=== PATIENT | female | born 1980 | race Caucasian/White ===

== ENCOUNTER 2022-10-04 07:01 | Outpatient (CLI) | payer OTHER, SELFPAY ==
--- NOTE | 2022-10-04 07:15 | CRLHL7_ITS ---
For Patients: As a result of the Century Cures Act, medical imaging exams and procedure reports are released immediately into your electronic medical record. You may view this report before your referring provider. If you have questions, please contact your health care provider. INDICATION: COMPARISON: none TECHNIQUE: 2D billy scale and color Doppler images were acquired of the pelvis using a transabdominal and transvaginal approach. FINDINGS: Sonographic images demonstrate a normal size and smooth outer contour of the uterus. Uterus measures 10.8 cm in length by 4.6 cm in AP diameter by 5.6 cm in transverse dimension. The myometrium has a normal uniform echotexture. Intrauterine device is located within the lower uterine segment. The right ovary measures 4.3 x 1.6 x 2.9 cm in size and the left ovary measures 4.6 x 1.8 x 3.0 cm. The ovaries demonstrate normal arterial and venous blood flow on color Doppler analysis. There are no suspicious fluid collections within the cul-de-sac. IMPRESSION: Intrauterine device is located within the lower uterine segment. Dictated by Joel Bone MD @ 10/04/2022 8:43:15 AM (Electronically Signed)
== END 2022-10-04 07:02 | disposition home or self-care (01) ==
LOC: US 07:02
PROVIDERS: Visit Provider Physician Assistant
DX: N92.0 Excessive and frequent menstruation with regular cycle (principal)
CPT/HCPCS: 76830

== ENCOUNTER 2022-10-17 15:12 | Outpatient (CLI) | payer OTHER, SELFPAY ==
[2022-10-17 22:43] LABS: Strep A DNA Probe* NOT DETECTED (Not Detectd)
== END 2022-10-17 15:13 | disposition home or self-care (01) ==
LOC: KYNREF 15:13
PROVIDERS: Visit Provider Nurse Practitioner Family
DX: J02.9 Acute pharyngitis, unspecified (principal)
CPT/HCPCS: 87651

== ENCOUNTER 2022-10-21 21:04 | Emergency (ER) | payer OTHER, SELFPAY ==
[2022-10-21 21:29] VITALS: BP 138/90; PULSE 99; RESP 20; TEMP 36.2; O2SAT 99; BMI 34.2
--- NOTE | 2022-10-21 22:04 | CRLHL7_ITS ---
For Patients: As a result of the Century Cures Act, medical imaging exams and procedure reports are released immediately into your electronic medical record. You may view this report before your referring provider. If you have questions, please contact your health care provider. Indication: Intermittent right-sided chest pain, cough Technique: Chest 1 view Comparison: July 14, 2015 Findings/Impression: Cardiovascular and mediastinum: Heart size and vasculature are normal in caliber and appearance. Mediastinum is within normal limits. Lungs and pleural space: Lungs are clear. No sign of infiltrate or mass. No sign of pleural effusion. No pneumothorax. Bones and soft tissues: No significant findings. Dictated by Gracie Cantor MD @ 10/21/2022 11:43:11 PM (Electronically Signed)
[2022-10-21 22:22] LABS: PCR FLU A Negative PCR FLU A (Negative); PCR FLU B Negative PCR FLU B (Negative); PCR RSV Negative PCR RSV (Negative)
[2022-10-21 22:29] LABS: SARS PCR* Negative SARS-CoV-2 (Negative)
[2022-10-21 22:40] LABS: Chloride* 107 mmol/L (96-114); Potassium* 4.1 mmol/L (3.6-5.1); Sodium* 140 mmol/L (135-149)
[2022-10-21 22:42] LABS: Est. Creatinine Clearance* 64.58; Estimated Glomerular Filt Rate 73 ml/min
[2022-10-21 22:43] LABS: Anion Gap 9 mEq/L (7-15); Blood Urea Nitrogen* 14 mg/dL (5-24); Calcium* 9.8 mg/dL (8.4-10.6); Carbon Dioxide* 24 mmol/L (20-32); Glucose* 112 mg/dL (60-115)
[2022-10-21 22:44] LABS: Basophils Absolute Auto 0.05 K/uL (0.00-0.30); Basophils Percent Auto 0.7 % (0.0-3.0); D Dimer Quantitative* 0.29 ug/ml (0.00-0.50); Eosinophils Absolute Auto 0.12 K/uL (0.00-0.50); Eosinophils Percent Auto 1.8 % (0.0-7.0); Hematocrit 41.5 % (33.0-51.0); Hemoglobin* 14.8 gm/dL (12.0-16.0); Immature Granulocytes Abs Auto 0.07 K/uL (0.00-0.30); Lymphocytes Absolute Auto 1.69 K/uL (0.90-2.90); Lymphocytes Percent Auto 24.9 % (20-44); Mean Corpuscular HGB Conc 36 gm/dL (32-36); Mean Corpuscular Hemoglobin 33 pg (26-34); Mean Corpuscular Volume 92 fL (80-100); Monocytes Percent Auto 8.5 % (0.0-11.0); Neutrophils Absolute Auto 4.28 K/uL (1.7-7.0); Neutrophils Percent Auto 63.1 % (42.0-72.0); Platelet Count* 330 K/uL (140-440); RDW Coefficient of Variation % 12.1 % (11.5-15.5); Red Blood Count 4.49 m/uL (4.00-5.20); White Blood Count* 6.79 K/uL (4.50-11.00)
[2022-10-21 22:50] LABS: Slide Review Reflex No
[2022-10-21 23:12] LABS: Troponin I* < 0.01 ng/mL (0.01-0.04)
--- NOTE | 2022-10-21 23:25 | ED_ITS ---
HPI - Chest Pain General Chief Complaint: Chest Pain Stated Complaint: right side chest pain Time Seen by Provider: 10/21/22 21:59 History of Present Illness HPI narrative: Patient is a 42-year-old woman who presents approximately 4 hours after the onset of right-sided chest pain. She has had no orthopnea no PND no nausea no vomiting. She has no previous history of heart problems. Symptoms have resolved. She has had no diaphoresis. EKG done upon arrival shows normal sinus rhythm without acute ST or T-wave changes. Patient has had no reproducible pain recently and otherwise been in her usual state of health. Pain is moderate and described as dull. Related Data Home Medications Medication Instructions Recorded Confirmed No Known Home Medications 10/03/22 10/17/22 Allergies Allergy/AdvReac Type Severity Reaction Status Date / Time sulfamethoxazole Allergy Unknown Headache Verified 10/17/22 14:47 [From Bactrim] trimethoprim [From Bactrim] Allergy Unknown Headache Verified 10/17/22 14:47 morphine AdvReac Unknown Bradycardia Verified 10/17/22 14:47 Review of Systems Status of ROS Reports: 10 or more systems reviewed and unremarkable except as noted in History and below [facility] Medical History White classification A1 gestational diabetes mellitus (GDM) ?O24.410 - Gestational diabetes mellitus in , diet controlled (ICD- 10) History of blood transfusion ?Z92.89 - Personal history of other medical treatment (ICD-10) History of abnormal cervical Papanicolaou smear ?Z87.42 - Personal history of other diseases of the female genital tract (I CD-10) Bradycardia following surgery (2015) ?I97.89 - Other postprocedural complications and disorders of the circulatory system, not elsewhere classified (ICD-10) Surgical History History of tonsillectomy (1990) ?Z90.89 - Acquired absence of other organs (ICD-10) History of ?Z98.891 - History of uterine scar from previous surgery (ICD-10) Family History Grandmother Heart disease Grandfather Heart disease Father High blood pressure Mother Osteoporosis Son Cleft palate Social History (Reviewed 10/19/22 @ 04:29 by Daija Lazaro, MANAGER CARDIOVASCULAR, ENGINE ASSEMBLY SUPERVISOR) Narrative: RN , 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 EYES: No scleral icterus. LYMPH: No supraclavicular or cervical lymphadenopathy. SKIN: Visible skin seen during exam normal or with benign process only. EXT: No dependent lower extremity pedal edema. HEART: Regular rate and rhythm with no murmurs, rubs, or gallops. LUNGS: Clear to auscultation bilaterally with no crackles or wheezes. ABD: Soft, non tender, non distended. PSYCH: Good eye contact, speech is not pressured. Const Vital Signs, click to edit/add: Vital Signs - 24 hr 10/21/22 21:29 Temperature 97.1 F L Pulse Rate [Right Pulse Oximeter] 99 Respiratory Rate 20 Blood Pressure [Right Upper Arm] 138/90 H Pulse Oximetry 99 Oxygen Delivery Method Room Air Course Course ED Course: Patient seen examined. Chest x-ray troponin D-dimer CBC basic metabolic panel requested. Vital Signs Vital signs: Initial Vital Signs Temperature 97.1 F L 10/21/22 21:29 Temperature Source Temporal Artery Scan 10/21/22 21:29 Pulse Rate 99 10/21/22 21:29 Pulse Rhythm Regular 10/21/22 21:29 Respiratory Rate 20 10/21/22 21:29 Blood Pressure 138/90 H 10/21/22 21:29 Blood Pressure Mean 106 H 10/21/22 21:29 Blood Pressure Position Sitting 10/21/22 21:29 Pulse Oximetry 99 10/21/22 21:29 Oxygen Delivery Method Room Air 10/21/22 21:29 Vital Signs Temperature 97.1 F L 10/21/22 21:29 Pulse Rate 99 10/21/22 21:29 Respiratory Rate 20 10/21/22 21:29 Blood Pressure 138/90 H 10/21/22 21:29 Pulse Oximetry 99 10/21/22 21:29 Oxygen Delivery Method Room Air 10/21/22 21:29 Temperature 97.1 F L 10/21/22 21:29 Pulse Rate 99 10/21/22 21:29 Respiratory Rate 20 10/21/22 21:29 Blood Pressure 138/90 H 10/21/22 21:29 Pulse Oximetry 99 10/21/22 21:29 Oxygen Delivery Method Room Air 10/21/22 21:29 MDM - Chest Pain MDM Narrative Medical decision making narrative: Patient is a healthy 42-year-old woman who presents for hours after chest pain. Pain was moderate and located in the right anterior chest without radiation. She has had no neurologic symptoms no fevers no chills no signs of illness. COVID testing is negative EKG upon my review shows no acute ST or T-wave changes. Troponin is negative D-dimer is negative basic metabolic panel is unremarkable as is CBC. Patient is resting comfortably. At this point due to the delay in her presentation negative troponin workup I would believe it is safe to send her home with close outpatient follow-up. Patient agrees. All questions answered. Differential Diagnosis Differential diagnosis: Likely fracture of rib, pneumothorax, stable angina, unstable angina pectoris, atypical chest pain, st elevation myocardial infarction, costochondritis, chest pain and biliary colic Lab Data Labs: Lab Results 10/21/22 10/21/22 Range/Units 21:33 22:20 WBC 6.79 (4.50-11.00) K/uL RBC 4.49 (4.00-5.20) m/uL Hgb 14.8 (12.0-16.0) gm/dL Hct 41.5 (33.0-51.0) % MCV 92 (80-100) fL MCH 33 (26-34) pg MCHC 36 (32-36) gm/dL RDW Coeff of Janet 12.1 (11.5-15.5) % Plt Count 330 (140-440) K/uL Neut % (Auto) 63.1 (42.0-72.0) % Lymph % (Auto) 24.9 (20-44) % [place] % (Auto) 8.5 (0.0-11.0) % Eos % (Auto) 1.8 (0.0-7.0) % Baso % (Auto) 0.7 (0.0-3.0) % Neut # (Auto) 4.28 (1.7-7.0) K/uL Lymph # (Auto) 1.69 (0.90-2.90) K/uL [place] # (Auto) 0.60 (0.00-0.90) K/UL Eos # (Auto) 0.12 (0.00-0.50) K/uL Baso # (Auto) 0.05 (0.00-0.30) K/uL Abs Immat Gran (auto) 0.07 (0.00-0.30) K/uL Imm/Tot Granulo (auto) 1.0 % D-Dimer Quant (PE/DVT) 0.29 (0.00-0.50) ug/ml Sodium 140 (135-149) mmol/L Potassium 4.1 (3.6-5.1) mmol/L Chloride 107 (96-114) mmol/L Carbon Dioxide 24 (20-32) mmol/L Anion Gap 9 (7-15) mEq/L BUN 14 (5-24) mg/dL Creatinine 1.0 (0.5-1.5) mg/dL Estimated Creat Clear 64.58 Estimated GFR 73 ml/min Glucose 112 (60-115) mg/dL Calcium 9.8 (8.4-10.6) mg/dL Troponin I < 0.01 L (0.01-0.04) ng/mL SARS-CoV-2 (PCR) Negative SARS-CoV-2 (Negative) Influenza Type A (PCR) Negative PCR FLU A (Negative) Influenza Type B (PCR) Negative PCR FLU B (Negative) RSV (PCR) Negative PCR RSV (Negative) Discharge Plan Discharge Clinical Impression: Chest pain Condition: Stable Instructions: Chest Pain (ED) Additional Instructions: Tylenol Motrin Rest Follow-up with your doctor this coming week Activity Level: No Restrictions Discharge Diet: Regular Prescriptions: No Action No Known Home Medications Follow Up/Referrals: Provider,Not a Local [Primary Care Provider] - Stand Alone Forms: [employer] Info Instructions
[2022-10-21 23:36] VITALS: BP 129/63; PULSE 70; RESP 16; O2SAT 98
== END 2022-10-21 23:37 | disposition home or self-care (01) ==
PROVIDERS: Emergency Provider Internal Medicine
DX: Z20.822 Contact with and (suspected) exposure to COVID-19 (principal); R07.9 Chest pain, unspecified
CPT/HCPCS: 36415; 71045; 80048; 84484; 85025; 85379; 87631; 93005; 99283; 99284; 99285